=== PATIENT | male | born 1930 | race Caucasian/White ===

== ENCOUNTER 2017-08-31 02:13 | Inpatient (IN) | payer MEDICARE, OTHER ==
[2017-08-31 03:17] LABS: #Eosinphils 0.2 thou/uL (0.0-0.7); #Lymphocytes 1.5 thou/uL (1.20-3.40); #Monocytes 0.6 thou/uL (0.11-0.59); #Neutrophils 3.4 thou/uL (1.40-6.50); %Basophils 0.3 % (0.0-1.0); %Eosinophils 3.6 % (0.0-10.0); %Monocytes 10.8 % (0.0-10.0); %Neutrophils 59.2 % (42.0-75.0); Hemoglobin 10.4 g/dL (14.0-18.0); Mean Corpuscular HGB CONC 33.1 g/dL (32.0-36.0); Mean Corpuscular Hemoglobin 31.3 pg (27.0-31.0); Mean Corpuscular Volume 94.7 fl (80.0-94.0); Mean Platelet Volume 7.5 fL (7.4-10.4); Platelet Count 255 thou/uL (130-400); RBC Distribution Width 12.4 % (11.5-14.5); Red Blood Cell (RBC) Count 3.31 mill/uL (4.70-6.10); White Blood Cell (WBC) Count 5.8 thou/uL (4.8-10.8)
[2017-08-31 03:29] LABS: Bilirubin Negative (Negative); Blood, Urine Negative (Negative); Clarity CLEAR (Clear); Glucose, Urine (Dipstick) Negative (Negative); Leukocyte Negative (Negative); Nitrite Negative (Negative); Protein, Urine (Dipstick) 30 mg/dL (Neg-Trace); Specific Gravity, Urine 1.017 (1.002-1.036); Urobilinogen 0.2 mg/dL (0.2-1.0)
[2017-08-31 03:31] LABS: Bacteria/HPF None Seen HPF (None Seen); Hyaline Casts/LPF 0-3 HYALINE CAST LPF (0-3 Hyaline); Pathc Cast-AUWi Flag 0.27 (0-2.49); RBC/HPF 0-3 HPF (0-3); Squamous Epithelial None Seen HPF (0-3); WBC/HPF 0-3 HPF (0-3)
[2017-08-31 03:33] LABS: ALT (SGPT) 20 U/L (8-55); AST (SGOT) 29 U/L (5-34); Alkaline Phosphatase 54 U/L (40-150); Anion Gap 12 mmol/L (10-20); BUN (Urea Nitrogen) 25 mg/dL (8.4-25.7); Bilirubin, Total 0.3 mg/dL (0.2-1.2); CK (CPK) 152 U/L (30-200); Calc. Creatinine Clearance 0 mL/min (70-130); Calcium 9.2 mg/dL (7.8-10.44); Carbon Dioxide 24 mmol/L (23-31); Chloride 99 mmol/L (98-107); Estimated GFR-MDRD 35; Globulin 2.8 g/dL (2.4-3.5); Glucose 110 mg/dL (83-110); Potassium 4.5 mmol/L (3.5-5.1); Protein, Total 6.8 g/dL (5.8-8.1); Sodium 130 mmol/L (136-145)
[2017-08-31 03:38] LABS: CKMB 2.2 ng/mL (0-6.6); Troponin I 0.127 ng/mL (< 0.028)
[2017-08-31] MEDS ORDERED: Oseltamivir 75 MG CAP PO SCH ×3 (03:45→09:00)
[2017-08-31] MEDS ORDERED: Cefepime 2 GM, Syringe 2.5 ML in Sterile Water 10 ML SLOW IVP SCH ×3 (05:45→21:00)
[2017-08-31 06:29] VITALS: BMI 24.7
[2017-08-31] MEDS ORDERED: Ondansetron HCl/PF 4 MG/2 ML Vial IVP PRN (06:50)
[2017-08-31] MEDS ORDERED: Albuterol Sulfate 2.5 mg/3 ml Neb NEB PRN (06:50)
[2017-08-31] MEDS ORDERED: HumaLOG 300 UNITS/3 ML VIAL SC PRN (06:50)
[2017-08-31] MEDS ORDERED: Dextrose 5% in Water 1,000 ML IV PRN (06:50)
[2017-08-31] MEDS ORDERED: Dextrose 50% Abboject 50 ML SYRINGE SLOW IVP PRN (06:50)
--- NOTE | 2017-08-31 07:19 | HP ---
PRIMARY CARE PHYSICIAN: Fab Morley M.D. The patient is a resident of [facility]. CHIEF COMPLAINT: Shortness of breath. HISTORY OF PRESENT ILLNESS: Mr. Matute is a pleasant 87-year-old gentleman who developed increa sing shortness of breath today and requested to be brought to the emergency department for evaluation . On arrival to the ER, he was complaining of shortness of breath, body aches, cough, and fevers. He i s really unable to tell us anything else going on. Workup in the emergency department showed a fever at 100.6, he was 88% on room air, satting 92% on 2 liters and 96% on 4 liters nasal cannula. His chest x-ray was clear; however, he was tachypneic on a rrival and had crackles per the ER doctor's exam and was subsequently admitted for pneumonia and flu positive status. The patient was seen and examined. He is somnolent and sleepy. He is able to be awakened and orient ed to person, but is unsure of place or time. He is audibly wheezing, and is visibly in mild to moderate respiratory distress. He denies any bleeding from above or below. He denies any nausea, vomiting or diarrhea. PAST MEDICAL HISTORY: 1. Hypertension. 2. Hypothyroidism. 3. Hyperlipidemia. 4. Chronic kidney disease. PAST SURGICAL HISTORY: Includes, 1. Right total hip arthroplasty. 2. Back surgery. 3. BKA. HOME MEDICATIONS: 1. Coreg 3.125 mg p.o. b.i.d. 2. Eliquis 2.5 mg p.o. b.i.d. 3. Hydralazine 12.5 mg p.o. daily. 4. Levothyroxine 75 mcg daily. 5. Lipitor 10 mg p.o. at bedtime. 6. Lisinopril 40 mg p.o. daily. 7. Paxil 5 mg p.o. b.i.d. 8. Ropinirole 2 mg daily. 9. Aspirin 81 mg daily. 10. Catapres 0.1 mg q.4 hours p.r.n. systolic pressure greater than 160/70. 11. Cholecalciferol 2000 units daily. ALLERGIES: CLONAZEPAM, FLEXERIL, FINASTERIDE, TAMSULOSIN and TRAMADOL. FAMILY HISTORY: Unknown. SOCIAL HISTORY: Reportedly negative x3. He is a FULL CODE and lives at [facility]. REVIEW OF SYSTEMS: Not obtainable due to dementia. PHYSICAL EXAMINATION: VITAL SIGNS: Temperature current is 99.6, temperature on arrival is 100.6, pulse 89, blood pressure 131/69, respiratory rate 18, satting 96% on 2 liters. GENERAL: He is awake. He is sleeping and arousable. He is oriented to person. He is in mild to mo derate respiratory distress. HEENT: Normocephalic and atraumatic. Pupils equal and reactive bilaterally. Mucous membranes are m oist. There are no visible lesions. No thrush. NECK: Supple. There is no lymphadenopathy, no JVD, no thyromegaly. He has no bruits. Normal carot id upstrokes. LUNGS: Have faint bilateral crackles present in the upper lung bond. He has poor air movement bhumi aterally. There is no E to A changes or dullness to percussion. CARDIOVASCULAR: He is regular and normal cardiac. He has normal S1 and S2. I do not appreciate mur murs. ABDOMEN: Soft. It is nontender. Using accessory muscles of the abdomen to breathe. He has got nor moactive bowel sounds present in all 4 quadrants. No rebound, rigidity or guarding. EXTREMITIES: Show no edema. He has a right BKA. Stump is clean, dry, and intact. NEUROLOGIC: Difficult to test because he does not follow commands well. SKIN: Warm, moist, and well perfused without any rashes or lesions. MUSCULOSKELETAL: Large joints appear uninflamed and normal to inspection. There are no palpable eff usions. LABORATORY DATA AND IMAGING DATA: Sodium is low 130, potassium 4.5, chloride 99, bicarbonate 24, BUN 25 and creatinine 1.84 down from his normal just over 2, glucose is normal at 110. CBC showed white count of 5.8, hemoglobin 10.4, hematocrit 31.1, platelet count 255,000. CK-MB is no rmal at 2.2, troponin I 0.127 and BNP is elevated at 181.2. Flu A is positive. Lactic acid normal at 1.1. Chest x-ray showed no acute cardiopulmonary disease. ASSESSMENT AND PLAN: 1. Influenza A. 2. Healthcare associated pneumonia on exam. 3. Sepsis with fever to 100.6, respiratory rate was 26 on arrival to the ER, the patient was tachyca rdic at 96 on arrival, suspected bacterial pneumonia. Patient got adequate fluids in the ER, we will continue IV fluids in the floor. Heart rate appears to be improved. 4. Chronic kidney disease. Creatinine actually improved from baseline around 2 down to 1.84. We wi ll continue to hydrate. 5. Paroxysmal atrial fibrillation on Eliquis 2.5 b.i.d., to continue. 6. Hypertension, on Coreg and lisinopril. We can continue this. 7. Dementia, patient is by report slightly more confused than his normal baseline. We will continue to monitor.
[2017-08-31] MEDS ORDERED: FLU VACC TS2017-18 (>65YR) 0.5 ML SYRINGE IM ONE (07:30)
[2017-08-31] MEDS: Sodium Chloride 0.9% 1,000 ML IV SCH ×4 (07:31→17:54)
--- NOTE | 2017-08-31 08:21 | RAD ---
AP VIEW CHEST: Date: 08/31/17 HISTORY: Fever. FINDINGS: Comparison made to previous exam from 11/04/11. AP view of chest demonstrates ectasia and calcifications of the aorta. The lungs are well aerated. No evidence of active intrathoracic disease is seen. No evidence of effusions, pneumonia, or pneumothor ax seen. IMPRESSION: Unremarkable AP view chest. POS: [facility]
[2017-08-31] MEDS ORDERED: Famotidine/PF 20 mg/2ml Vial SLOW IVP SCH (09:00)
[2017-08-31] MEDS ORDERED: Cefepime 2 GM in Sodium Chloride 0.9% 100 ML IVPB SCH (09:00)
[2017-08-31] MEDS ORDERED: Acetaminophen 650 MG Suppository PR PRN (11:30)
[2017-08-31] MEDS ORDERED: Acetaminophen 325 MG TAB PO PRN (11:30)
[2017-08-31 16:04] VITALS: BP 115/52; TEMP 99.6
--- NOTE | 2017-09-01 04:30 | DIS ---
TRANSFER OF CARE NOTE DATE OF ADMISSION: 08/31/2017 DATE OF DISCHARGE: 08/31/2017 DISCHARGE DIAGNOSES: 1. Influenza A with suspicion for developing healthcare associated pneumonia. 2. Hypoxemia with O2 saturation 86% on room air. 3. Systemic inflammatory response syndrome secondarily to #1. 4. Chronic kidney disease stage 3. 5. Paroxysmal atrial fibrillation on chronic anticoagulation with Eliquis. 6. Hypertension. 7. Hyperlipidemia. 8. Hypothyroidism. 9. Question of early dementia. CONSULTATIONS: None. PERTINENT LAB AND X-RAY FINDINGS: Sodium 130, creatinine 1.84, estimated GFR 35. Lactic acid level 1.1. LFTs within normal limits. Troponin 0.127, BNP 181, albumin 4.0. CBC showed a white blood ce ll count 5.8, hemoglobin 10, hematocrit 31, MCV 95, platelet count 255 with 59% neutrophils. Urinaly sis positive for protein. Influenza A positive from nasal swab 08/31/2017. Portable chest x-ray gumaro ed 08/31/2017 showed no acute cardiopulmonary process. HOSPITAL COURSE: The patient was admitted to the telemetry unit after initially presenting with incr eased shortness of breath and fever. The patient underwent general evaluation including nasal swab f or influenza with influenza A positivity noted. The patient also met SIRS criteria with elevated tem perature, respiratory rate, and apparently 86% on room air, placed on 2 liters per minute by nasal ca nnula with O2 saturations increasing to 96%. Chest imaging showed no specific evidence of infiltrate ; however, the patient was treated with early developing healthcare-associated pneumonia in the jyotsna xt of influenza A. The patient was treated with IV cefepime, Levaquin, as well as Tamiflu. The mary grace ent was placed in respiratory isolation status and given IV fluids. Due to insurance requirements th e patient will be transferred to [facility] in [place], [place]. DISCHARGE MEDICATIONS: 1. Tamiflu 75 mg 1 tab p.o. b.i.d. 2. Cefepime 2 grams IV q.12 hours. 3. Levaquin 500 mg IV q.24h. 4. Eliquis 2.5 mg p.o. b.i.d. 5. Enteric coated aspirin 81 mg p.o. daily. 6. Lipitor 10 mg p.o. daily. 7. Carvedilol 3.125 mg p.o. b.i.d. 8. Vitamin D3 2000 units p.o. daily. 9. Catapres 0.1 mg p.o. q.4h. p.r.n. systolic greater than or equal to 170. 10. Hydralazine 12.5 mg p.o. b.i.d. 11. Levothyroxine 75 mcg 1 tab p.o. daily. 12. Lisinopril 40 mg 1 tab p.o. daily. 13. Paxil 5 mg 1 tab p.o. b.i.d. 14. Ropinirole 2 mg p.o. at bedtime. FOLLOWUP: The patient will follow up with his primary care provider, Dr. Fab Morley after discharg e from [facility]. CONDITION ON DISCHARGE: Fair. ACTIVITY: Ad yared. DIET: Heart healthy. SPECIAL INSTRUCTIONS: Continue respiratory isolation due to influenza A positive. CODE STATUS: Full. DISPOSITION: Transferred to [facility] in [place], [place] 08/31/2017.
--- NOTE | 2017-09-05 10:59 | PQF ---
JESSA BALDERAS CHARLES DO [id number] CLINICAL DOCUMENTATION CLARIFICATION FORM: POST DISCHARGE Addendum to original discharge summary date: ____ Late entry note date: __ JESSA BALDERAS [id number] MARY REVELES PLEASE DOCUMENT YOUR RESPONSE BELOW PLEASE FAX RESPONSE BACK TO YOUR INPUT IS NEEDED TO CORRECTLY CODE A DIAGNOSIS FOR YOUR PATIENT. DATE: 09/04/17 ATTN: Dr. Rojas Please exercise your independent, professional judgment in responding to the clarification form. Clinical indicators are provided on the bottom of this form for your review Please check appropriate box(s) to clarify if the following diagnosis has been ruled in our ruled out: Sepsis (CDI/Coding list diagnosis here) [ ] Ruled in diagnosis [ ] Continue to treat [ ] Resolved [ ] Ruled out diagnosis [ ] Cannot rule out diagnosis [ ] Other diagnosis [ ] Unable to determine In addition, please specify: Present on Admission (POA): [ ] Yes [ ] No [ ] Unable to determine For continuity of documentation, please document condition throughout progress notes and discharge summary. Thank You. CLINICAL INDICATORS - SIGNS / SYMPTOMS / LABS Fever 100.6 hypoxia 88% on room air tachypneic respiratory rate 26 tachycardia 96 RISK FACTORS influenza MTDD
--- NOTE | 2017-09-06 15:48 | EKG ---
Test Reason : Blood Pressure : / mmHG Vent. Rate : 083 BPM Atrial Rate : 083 BPM P-R Int : 222 ms QRS Dur : 078 ms QT Int : 372 ms P-R-T Axes : 069 061 075 degrees QTc Int : 437 ms Sinus rhythm with 1st degree A-V block Cannot rule out Anterior infarct , age undetermined Left axis deviation Left ventricular hypertrophy Abnormal ECG Confirmed by KERWIN STRICKLAND, SAGE Martins ([id number]), photography editor GARRETT RICE ([id number]) on 09/06/2017 3:48:19 PM Referred By: Confirmed By:SAGE SURESH MD
== END 2017-08-31 19:32 | disposition short-term general hospital (02) | DRG 871 ==
LOC: ERS 02:13 → 2SE 04:47
PROVIDERS: ADMIT Internal Medicine Infectious Disease; ATTEND Internal Medicine Infectious Disease
DX: A41.89 Other specified sepsis (principal); J15.9 Unspecified bacterial pneumonia; J10.00 Influenza due to other identified influenza virus with unspecified type of pneumonia; I48.0 Paroxysmal atrial fibrillation; F03.90 Unspecified dementia, unspecified severity, without behavioral disturbance, psychotic disturbance, mood disturbance, and anxiety; N18.3 Chronic kidney disease, stage 3 (moderate); E87.1 Hypo-osmolality and hyponatremia; E03.9 Hypothyroidism, unspecified; E78.5 Hyperlipidemia, unspecified; I12.9 Hypertensive chronic kidney disease with stage 1 through stage 4 chronic kidney disease, or unspecified chronic kidney disease; Z96.641 Presence of right artificial hip joint; Z79.01 Long term (current) use of anticoagulants; Z88.8 Allergy status to other drugs, medicaments and biological substances; Y95 Nosocomial condition; G25.81 Restless legs syndrome
CPT/HCPCS: 36415; 51701; 71010; 80053; 81003; 81015; 82553; 83605; 83880; 84484; 85025; 87040; 87077; 87086; 87186; 90471; 90682; 93005; 94640; 96365; 96375; A4216; G0008; G8996-GN-CK; G8997-GN-CK; J0692; J1956; J3370; J7050; J7620; Q2036; S0028